=== PATIENT | female | born 1985 | race Caucasian/White ===

== ENCOUNTER 2016-11-10 19:24 | Emergency (ER) | payer MEDICAID, OTHER, SELFPAY ==
[~2016-11-10] VITALS: Ht 160 cm; Wt 57.5 kg
[2016-11-10] MEDS ORDERED: ADACEL/BOOSTRIX VACCINE (DIPHTH/PERTUSS/ACELL/TETANUS)0.5ML SYR (90715) IM ONE (20:15)
[2016-11-10] MEDS ORDERED: LIDOCAINE 2% MDV 20 ML VIAL SC ONE (20:15)
[2016-11-10 21:42] VITALS: BP 126/76
== END 2016-11-10 21:46 | disposition home or self-care (01) ==
LOC: M ED 19:24
DX: S61.011A Laceration without foreign body of right thumb without damage to nail, initial encounter (principal); W26.8XXA Contact with other sharp object(s), not elsewhere classified, initial encounter; Y92.099 Unspecified place in other non-institutional residence as the place of occurrence of the external cause; Y93.9 Activity, unspecified; Y99.9 Unspecified external cause status; F17.200 Nicotine dependence, unspecified, uncomplicated; J30.81 Allergic rhinitis due to animal (cat) (dog) hair and dander; Z91.040 Latex allergy status

== ENCOUNTER 2016-11-21 08:15 | Emergency (ER) | payer MEDICAID, SELFPAY ==
[~2016-11-21] VITALS: Ht 157.5 cm; Wt 58.0 kg
[2016-11-21 08:28] VITALS: BP 111/66
== END 2016-11-21 09:01 | disposition home or self-care (01) ==
LOC: M ED 08:15
DX: Z48.02 Encounter for removal of sutures (principal); J30.81 Allergic rhinitis due to animal (cat) (dog) hair and dander; J30.1 Allergic rhinitis due to pollen; Z91.040 Latex allergy status

== ENCOUNTER 2018-05-05 17:12 | Emergency (ER) | payer MEDICAID ==
[~2018-05-05] VITALS: Ht 157.5 cm; Wt 59.1 kg
[2018-05-05 17:13] VITALS: BP 142/75
--- NOTE | 2018-05-05 19:56 | REP ---
RIGHT ANKLE, FOUR VIEWS: HISTORY: Trauma. COMPARISON: 11/13/2015. There is no acute fracture or dislocation. The joint space is normal in appearance. IMPRESSION:There is no acute fracture or dislocation. Electronically Signed by Tre Gaytan MD 05/06/2018 08:24 A
--- NOTE | 2018-05-05 19:56 | REP ---
RIGHT FOOT, FOUR VIEWS: HISTORY: Trauma. There is no acute fracture or dislocation. The joint spaces are normal in appearance. IMPRESSION:There is no acute fracture or dislocation. Electronically Signed by Tre Gaytan MD 05/06/2018 08:26 A
== END 2018-05-05 19:56 | disposition home or self-care (01) ==
LOC: M ED 17:12
DX: S90.31XA Contusion of right foot, initial encounter (principal); W01.0XXA Fall on same level from slipping, tripping and stumbling without subsequent striking against object, initial encounter; Y92.009 Unspecified place in unspecified non-institutional (private) residence as the place of occurrence of the external cause

== ENCOUNTER 2018-10-06 08:36 | Emergency (ER) | payer OTHER ==
[~2018-10-06] VITALS: Ht 157.5 cm; Wt 57.1 kg
[2018-10-06 08:37] VITALS: BP 132/78
[2018-10-06] MEDS ORDERED: DOXY100C37 PO (10:06)
== END 2018-10-06 10:20 | disposition home or self-care (01) ==
LOC: M ED 08:36
DX: S30.861A Insect bite (nonvenomous) of abdominal wall, initial encounter (principal); W57.XXXA Bitten or stung by nonvenomous insect and other nonvenomous arthropods, initial encounter; Y92.89 Other specified places as the place of occurrence of the external cause; J30.81 Allergic rhinitis due to animal (cat) (dog) hair and dander; Z91.040 Latex allergy status; F17.210 Nicotine dependence, cigarettes, uncomplicated

== ENCOUNTER → 2018-11-16 | Outpatient (CLI) | payer OTHER ==
[~2018-11-16] MED LIST: DOXY100C37 PO
--- NOTE | 2018-11-17 07:52 | REP ---
Right ankle four views : There is no fracture or dislocation. Mineralization and joint spaces are normal. There are no calcifications or foreign bodies. Impression: Negative right ankle . Electronically Signed by Houston Jeffries MD 11/16/2018 09:13 A
--- NOTE | 2018-11-17 07:52 | REP ---
Right foot four views : There is no fracture or dislocation. Mineralization and joint spaces are normal. There are no calcifications or foreign bodies. Impression: Negative right foot . Electronically Signed by Houston Jeffries MD 11/16/2018 09:14 A
== END ==
LOC: M WUC 08:47
PROVIDERS: ATTEND Physician Assistant
DX: S93.401A Sprain of unspecified ligament of right ankle, initial encounter (principal); S93.601A Unspecified sprain of right foot, initial encounter

== ENCOUNTER → 2019-11-18 | Outpatient (REF) | payer OTHER | LOC: M LAB REF 15:31 | PROVIDERS: ATTEND Physician Assistant | DX: R19.7 Diarrhea, unspecified (principal) ==

== ENCOUNTER → 2019-11-25 | Emergency (ER) | payer OTHER ==
[~2019-11-25] MED LIST changes: +GASTROGRAFIN SOLUTION 30ML (Q9963) As Ordered ONE; +GASTROGRAFIN SOLUTION 30ML (Q9963) ONE; +ISOVUE-370 76% 100ML VIAL As Ordered ONE; +KETOROLAC 30 MG/ML 1ML VIAL As Ordered ONE; +KETOROLAC 30 MG/ML 1ML VIAL ONE; +ONDANSETRON 4MG/2ML VIAL As Ordered ONE; +ONDANSETRON 4MG/2ML VIAL ONE
[2020-01-10 11:01] LABS: APPEARANCE, URINE CLEAR (CLEAR); BACTERIA, URINE AUTO NEGATIVE (NEGATIVE); BILIRUBIN, URINE AUTO NEGATIVE (NEGATIVE); BLOOD, URINE BLOOD 2+ (NEGATIVE); COLOR, URINE YELLOW (YELLOW); GLUCOSE, URINE (UA) AUTO NEGATIVE (NEGATIVE); KETONE, URINE AUTO NEGATIVE (NEGATIVE); LEUKOCYTE ESTERASE, URINE AUTO NEGATIVE (NEGATIVE); MUCUS, URINE SMALL (NEGATIVE); NITRITE, URINE AUTO NEGATIVE (NEGATIVE); PROTEIN, URINE AUTO NEGATIVE (NEGATIVE); RBC, URINE AUTO 3 /HPF (0-3); SPECIFIC GRAVITY URINE AUTO 1.023 (1.002-1.035); SQUAMOUS EPITHELIAL CELL UR AU 1 /HPF (0-6); UROBILINOGEN, URINE AUTO 0.2 mg/dL (0.0-2.0); WBC, URINE AUTO 1 /HPF (0-3)
[2020-01-10 11:37] LABS: BASO # 0.1 10^3/uL (0.0-0.2); BASO % 0.6 % (0.0-1.0); EOS # 0.4 10^3/uL (0.0-0.5); EOS % 4.5 % (0.0-3.0); HEMATOCRIT 44.7 % (36.0-47.0); HEMOGLOBIN 14.6 g/dl (12.0-15.5); LYMPH # 1.6 10^3/uL (1.5-5.0); LYMPH % 18.9 % (24.0-44.0); MEAN CORPUSCULAR HEMOGLOBIN 31.7 pg (27.0-33.0); MEAN CORPUSCULAR HGB CONC 32.7 g/dl (32.0-36.5); MEAN CORPUSCULAR VOLUME 97.2 fl (80.0-96.0); MONO # 0.5 10^3/uL (0.0-0.8); MONO % 6.5 % (0.0-5.0); NEUTROPHILS # 5.7 10^3/uL (1.5-8.5); NEUTROPHILS % 69.3 % (36.0-66.0); PLATELET COUNT, AUTOMATED 334 10^3/uL (150-450); WHITE BLOOD COUNT 8.3 10^3/uL (4.0-10.0)
[2020-02-20 10:14] LABS: ALBUMIN 4.2 GM/DL (3.2-5.2); ALT/SGPT 18 U/L (12-78); BILIRUBIN,TOTAL 0.4 MG/DL (0.2-1.0); BLOOD UREA NITROGEN 14 MG/DL (7-18); CALCIUM LEVEL 9.3 MG/DL (8.5-10.1); CARBON DIOXIDE LEVEL 29 MEQ/L (21-32); CHLORIDE LEVEL 109 MEQ/L (98-107); CREATININE FOR GFR 0.67 MG/DL (0.55-1.30); GLOMERULAR FILTRATION RATE > 60.0 (>60); GLUCOSE, FASTING 83 MG/DL (70-100); LIPASE 49 U/L (73-393); POTASSIUM SERUM 4.3 MEQ/L (3.5-5.1); SODIUM LEVEL 140 MEQ/L (136-145); TOTAL PROTEIN 8.2 GM/DL (6.4-8.2)
== END | disposition home or self-care (01) ==
LOC: M ED 10:00
DX: K52.9 Noninfective gastroenteritis and colitis, unspecified (principal); N20.0 Calculus of kidney; F17.290 Nicotine dependence, other tobacco product, uncomplicated; Z88.8 Allergy status to other drugs, medicaments and biological substances; Z91.040 Latex allergy status
CPT/HCPCS: 71046; 74177; 80053; 81001; 83690; 85025; 96361; 96374; 96375; 99284; J1885; J2405; Q9963; Q9967

== ENCOUNTER 2020-04-13 12:23 | Emergency (ER) | payer OTHER ==
[~2020-04-13] VITALS: Ht 157.5 cm; Wt 51.5 kg
[~2020-04-13 12:23] MED LIST changes: -GASTROGRAFIN SOLUTION 30ML (Q9963) As Ordered ONE; -GASTROGRAFIN SOLUTION 30ML (Q9963) ONE; -ISOVUE-370 76% 100ML VIAL As Ordered ONE; -KETOROLAC 30 MG/ML 1ML VIAL As Ordered ONE; -KETOROLAC 30 MG/ML 1ML VIAL ONE; -ONDANSETRON 4MG/2ML VIAL As Ordered ONE; -ONDANSETRON 4MG/2ML VIAL ONE
[2020-04-13] MEDS ORDERED: NS 1,000 ML IV ONE (13:15)
[2020-04-13 13:44] LABS: BASO % 0.5 % (0.0-1.0); EOS % 0.5 % (0.0-3.0); HEMATOCRIT 40.1 % (36.0-47.0); HEMOGLOBIN 13.1 g/dl (12.0-15.5); LYMPH # 1.4 10^3/uL (1.5-5.0); LYMPH % 16.3 % (24.0-44.0); MEAN CORPUSCULAR HEMOGLOBIN 31.3 pg (27.0-33.0); MEAN CORPUSCULAR HGB CONC 32.7 g/dl (32.0-36.5); MEAN CORPUSCULAR VOLUME 95.7 fl (80.0-96.0); MONO # 0.5 10^3/uL (0.0-0.8); MONO % 5.6 % (0.0-5.0); NEUTROPHILS # 6.8 10^3/uL (1.5-8.5); NEUTROPHILS % 76.8 % (36.0-66.0); PLATELET COUNT, AUTOMATED 260 10^3/uL (150-450); RED BLOOD COUNT 4.19 10^6/uL (4.00-5.40); WHITE BLOOD COUNT 8.8 10^3/uL (4.0-10.0)
[2020-04-13 14:10] LABS: ALBUMIN 3.9 GM/DL (3.2-5.2); ALT/SGPT 14 U/L (12-78); BILIRUBIN,DIRECT 0.1 MG/DL (0.0-0.2); BILIRUBIN,TOTAL 0.2 MG/DL (0.2-1.0); LIPASE 53 U/L (73-393); TOTAL PROTEIN 7.3 GM/DL (6.4-8.2)
[2020-04-13 14:21] LABS: C REACTIVE PROTEIN QUANTITATIV < 0.30 MG/DL (0.00-0.30)
[2020-04-13 14:43] LABS: ERYTHROCYTE SEDIMENTATION RATE 3 mm/hr (0-20)
[2020-04-13] MEDS: GASTROGRAFIN SOLUTION 30ML PO SCH ×2 (14:47→15:14)
[2020-04-13] MEDS ORDERED: MORPHINE 2 MG/ML 1ML VIAL (J2270) IV ONE (15:00)
[2020-04-13] MEDS ORDERED: PANTOPRAZOLE 40MG VIAL (C9113 PER 1) IV ONE (15:00)
[2020-04-13] MEDS ORDERED: ISOVUE-370 76% 100ML VIAL As Ordered ONE (16:07)
--- NOTE | 2020-04-13 16:41 | REP ---
INDICATION: left abd pain COMPARISON: 11/25/2019. TECHNIQUE: CT Scan of the abdomen and pelvis was performed with intravenous administration of 100 cc of Isovue 370, and oral contrast. FINDINGS: Lung bases: Unremarkable. Liver: There appears to be a tiny subcentimeter cyst in the liver near the gallbladder. Gallbladder: Unremarkable. Spleen: Normal. Adrenals: Normal. Pancreas: Normal. Kidneys: Subcentimeter calculus is seen in the lower pole of the right kidney. There is no hydronephrosis. Small and large bowel: Unremarkable. Free fluid: Trace free fluid is seen in the pelvis. Abdominal aorta: No aneurysm or dissection. Adenopathy: There are subcentimeter lymph nodes in the periaortic region. There also 2 slightly enlarged left para-aortic lymph nodes below the left renal vessels measuring 1.2 and 1.3 cm in short axis.. Appendix: Not inflamed. Osseous structures: There are few tiny bone islands in the pelvic bones. Pelvis: There is an IUD in the endometrial canal. There is a cystic structure of the right ovary 3.8 cm in diameter. IMPRESSION: There is a cystic structure of the right ovary 3.8 cm in diameter. There is trace free fluid in the pelvis. Two slightly enlarged left para-aortic lymph nodes are nonspecific, measuring 1.2 and 1.3 cm in short axis dimension. Otherwise no acute abnormalities are seen. <Electronically signed by Houston Weaver > 04/13/20 [id number]
[2020-04-13] MEDS ORDERED: PROT1TAB2 PO (16:55)
[2020-04-13] MEDS ORDERED: CARA1TAB6 PO (16:55)
[2020-04-13 17:03] VITALS: BP 129/71
--- NOTE | 2020-04-15 14:08 | ED PDOC ---
Post-Departure Follow-Up radiology report faxed to [facility] esparza Sarah MD Apr 15, 2020 14:08
== END 2020-04-13 17:11 | disposition home or self-care (01) ==
LOC: M ED 12:23
DX: N83.201 Unspecified ovarian cyst, right side (principal); K29.00 Acute gastritis without bleeding; F17.200 Nicotine dependence, unspecified, uncomplicated; J30.81 Allergic rhinitis due to animal (cat) (dog) hair and dander; Z91.040 Latex allergy status
CPT/HCPCS: 74177; 80047; 80076; 83690; 84702; 85025; 85652; 86140; 96361; 96374; 96375; 99284; C9113; J2270; Q9963; Q9967

== ENCOUNTER → 2020-05-13 | Outpatient (CLI) | payer OTHER ==
[~2020-05-13] MED LIST changes: +CARA1TAB6 PO; +PROT1TAB2 PO
== END ==
LOC: M LABSMTC 09:49
PROVIDERS: ATTEND Anesthesiology
DX: Z01.812 Encounter for preprocedural laboratory examination (principal); Z20.822 Contact with and (suspected) exposure to COVID-19

== ENCOUNTER → 2020-05-27 | Outpatient (CLI) | payer OTHER | LOC: M LABSMTC 09:51 | PROVIDERS: ATTEND Anesthesiology | DX: Z01.812 Encounter for preprocedural laboratory examination (principal); Z20.822 Contact with and (suspected) exposure to COVID-19 ==

== ENCOUNTER 2020-06-01 09:58 | Day surgery (SDC) | payer OTHER ==
[~2020-06-01] VITALS: Ht 157.5 cm; Wt 48.1 kg
[~2020-06-01 09:58] MED LIST changes: +NS 1,000 ML IV ONE
--- OUTSIDE RECORDS SUMMARY | 2020-06-01 10:01 | CCD | Continuity of Care Document ---
Author Author RUTHY COX, Mariah Horvath Organization Unknown Address [address] [place] [id number] Phone [phone] Care Team Providers Care Machine Stamper Name Role Phone Graciela Brock M.D. AUTM [phone] You Ramos AUTM [phone] Problems Description No Information Available Social History Type Date Description Comments Sex Unknown ETOH Use Denies alcohol use Recreational Drug Use Denies Drug Use Tobacco Use Start: Unknown Patient is a current smoker, smo kes every day 1 PPD FOR 17 YEARS Allergies, Adverse Reactions, Alerts Active Allergies Reaction Severity Comments Date Latex Hives 05/03/2020 Seasonal ITCHY EYES, RUNNY NOSE 05/03 Medications Active Medications SIG Qnty Indications Ordering Provide r Date Sucralfate 1gm Tablets take 1 tablet by mouth four daily.(may dissolve in warm water if you have trouble swallowing) Unknown Pantoprazole Sodium 40mg Tablets D R one daily Unknown Immunizations Description No Information Available Vital Signs Date Vital Result Comment 05/03/2020 10:26am BP Systolic 122 mmHg BP Diastolic 77 mmHg Height 62 inches 5'2" Weight 109.25 lb BMI (Body Mass Index) 20.0 kg/m2 [place] Body Weight 110 lb Weight 49.556 kg BSA (Body Surface Area) 1.48 m2 Results Description No Information Available Procedures Description No Information Available Medical Devices Description No Information Available Encounters Description No Information Available Assessments Description No Information Available Plan of Treatment No Information Available Functional Status Description No Information Available Mental Status Description No Information Available Referrals Refer to Reason for Referral Status Appt Date Cong Osborne MD GASTRITIS Scheduled 05/03/[address] [address] [phone]
--- OUTSIDE RECORDS SUMMARY | 2020-06-01 10:01 | CCD ---
Author Author [facility] Organization [facility] Address Unknown Phone Unavailable Care Team Providers Care [place] Technician Name Role Phone GRIJALVA, DILMA YOU RPA-C Unavailable Unavailable GRIJALVA, DILMA YOU RPA-C Unavailable Unavailable GRIJALVA, DILMA YOU RPA-C Unavailable Unavailable GRIJALVA, DILMA YOU RPA-C Unavailable Unavailable GRIJALVA, DILMA YOU RPA-C Unavailable Unavailable GRIJALVA, DILMA YOU RPA-C Unavailable Unavailable GRIJALVA, DILMA YOU RPA-C Unavailable Unavailable GRIJALVA, DILMA YOU RPA-C Unavailable Unavailable GRIJALVA, DILMA YOU RPA-C Unavailable Unavailable GRIJALVA, DILMA YOU RPA-C Unavailable Unavailable GRIJALVA, DILMA YOU RPA-C Unavailable Unavailable GRIJALVA, DILMA YOU RPA-C Unavailable Unavailable GRIJALVA, DILMA YOU RPA-C Unavailable Unavailable GRIJALVA, DILMA YOU RPA-C Unavailable Unavailable GRIJALVA, DILMA YOU RPA-C Unavailable Unavailable GRIJALVA, DILMA YOU RPA-C Unavailable Unavailable GRIJALVA, DILMA YOU RPA-C Unavailable Unavailable GRIJALVA, DILMA YOU RPA-C Unavailable Unavailable GRIJALVA, DILMA YOU RPA-C Unavailable Unavailable GRIJALVA, DILMA YOU RPA-C Unavailable Unavailable GRIJALVA, DILMA YOU RPA-C Unavailable Unavailable GRIJALVA, DILMA YOU RPA-C Unavailable Unavailable GRIJALVA, DILMA YOU RPA-C Unavailable Unavailable GRIJALVA, DILMA YOU RPA-C Unavailable Unavailable GRIJALVA, DILMA YOU RPA-C Unavailable Unavailable GRIJALVA, DILMA YOU RPA-C Unavailable Unavailable GRIJALVA, DILMA YOU RPA-C Unavailable Unavailable GRIJALVA, DILMA YOU RPA-C Unavailable Unavailable GRIJALVA, DILMA YOU RPA-C Unavailable Unavailable GRIJALVA, DILMA YOU RPA-C Unavailable Unavailable GRIJALVA, DILMA YOU RPA-C Unavailable Unavailable GRIJALVA, DILMA YOU RPA-C Unavailable Unavailable GRIJALVA, DILMA YOU RPA-C Unavailable Unavailable GRIJALVA, DILMA YOU RPA-C Unavailable Unavailable GRIJALVA, DILMA YOU RPA-C Unavailable Unavailable GRIJALVA, DILMA YOU RPA-C Unavailable Unavailable GRIJALVA, DILMA YOU RPA-C Unavailable Unavailable GRIJALVA, DILMA YOU RPA-C Unavailable Unavailable GRIJALVA, DILMA YOU RPA-C Unavailable Unavailable [facility] YOU Unavailable Unavailable Re-disclosure Warning The records that you are about to access may contain information from federally-assisted alcohol or drug abuse programs. If such information is present, then the following federally mandated warning applies: This information has been disclosed to you from records protected by federal confidentiality rules (42 CFR part 2). The federal rules prohibit you from making any further disclosure of this information unless further disclosure is expressly permitted by the written consent of the person to whom it pertains or as otherwise permitted by 42 CFR part 2. A general authorization for the release of medical or other information is NOT sufficient for this purpose. The Federal rules restrict any use of the information to criminally investigate or prosecute any alcohol or drug abuse patient.The records that you are about to access may contain highly sensitive health information, the redisclosure of which is protected by Article 27-F of the [facility] Public Health law. If you continue you may have access to information: Regarding HIV / AIDS; Provided by facilities licensed or operated by the [facility] Office of Mental Health; or Provided by the [facility] Office for People With Developmental Disabilities. If such information is present, then the following [facility] mandated warning applies: This information has been disclosed to you from confidential records which are protected by state law. State law prohibits you from making any further disclosure of this information without the specific written consent of the person to whom it pertains, or as otherwise permitted by law. Any unauthorized further disclosure in violation of state law may result in a fine or usp sentence or both. A general authorization for the release of medical or other information is NOT sufficient authorization for further disc losure. Allergies and Adverse Reactions Type Description Substance Reaction Status Data Source(s ) Miscellaneous allergy LATEX LATEX break out [facility] Family History Family Member Name Family Member Gender Family Member Status Date o f Status Description Data Source(s) Unknown Unknown Problem [facility] ([facility] Encounters Encounter Providers Location Date Indications Data Source(s ) Outpatient Attender: [facility] 01/29/2020 11:48:03 AM EDT [facility] Outpatient Attender: [facility] 01/28/2020 11:38:04 AM EDT [facility] Outpatient Attender: GARETH BLACK ALL 11/21 02:23:02 PM EDT [facility] Outpatient Attender: [facility] 12/11/2019 12:00:10 AM EDT [facility] Outpatient Attender: YOU [facility] 12/10/2019 12:24:01 PM EDT [facility] Medications Medication Brand Name Start Date Product Form Dose Route Admi nistrative Instructions Pharmacy Instructions Status Indications Reaction Description Data Source(s) 1 gram 04/13/2020 12:00:00 AM EST tablet 100 TAKE ONE TABLET BY MOUTH FOUR TIMES A DAY BEFORE MEALS AND AT BEDTIME ON EMPTY STOMACH TAKE ONE TABLET BY MOUTH FOUR TIMES A DAY BEFORE MEALS AND AT BEDTIME ON EMPTY STOMACH SOLD: 04/14/2020 [facility] pantoprazole 40 MG Delayed Release Oral Tablet PANTOPRAZOLE SODIUM 04/13/2020 12:00:00 AM EST tablet,delayed release (DR/EC) 30 T DAE ONE TABLET BY MOUTH EVERY DAY TAKE ONE TABLET BY MOUTH EVERY DAY SOLD: 04/14/2020 [facility] Insurance Providers Payer name Policy type / Coverage type Policy ID Covered green party ID Covered green party's relationship to welsh Policy Welsh Plan Information [facility] [id number] SP [id number] [facility] O [id number] S [id number] [facility] Health Maintenance Organization (HMO) [id number] Self [id number] MEDICAID M [id number] [facility] Community Plan Commercial [id number] Self [id number] MEDICAID [id number] SP [id number] MEDICAID [id number] SP [id number] SELF PAY ONLY [id number] SP [id number] [facility] COMMUN[facility] [id number] SP [id number] [facility] O [id number] S [id number] Problems, Conditions, and Diagnoses Code Display Name Description Problem Type Effective Dates Data Source(s) 530.81 Gastro-esophageal reflux disease without esophagitis Gastro-esophageal reflux disease without esophagitis 01/29/2020 11:46:02 AM ED T [facility] V05.9 Encounter for immunization Encounter for immunization 01/28/2020 11:36:10 AM EDT [facility] Z00.00 Encounter for general adult medical examination without abnormal findings Encounter for general adult medical examination without abno rmal findings 01/28/2020 11:36:10 AM EDT [facility] V85.1 BMI 22.0-22.9 BMI 22.0-22.9 01/28/2020 11:36:10 AM EDT [facility] [id number] Noninfective gastroenteritis and colitis , unspecified Noninfective gastroenteritis and colitis, unspecified 12/10/2019 12:23:06 PM EDT [facility] F17.210 Nicotine dependence, cigarettes, uncompl icated Nicotine dependence, cigarettes, uncomplicated 12/10/2019 12:23:06 PM EDT [facility] 787.3 Bloating symptom Bloating symptom 12/10/2019 12 :23:06 PM EDT [facility] 789.02 Left upper quadrant pain Left upper quadrant pain 12/10/2019 12:23:06 PM EDT [facility] 305.1 Tobacco user Tobacco user 12/10/2019 12:23:06 P M EDT [facility] Results ID Date Data Source [id number] 05/27/2020 09:30:00 AM EST [facility] Name Value Range Interpretation Code Description Data Analia rce(s) Supporting Document(s) SARS coronavirus 2 RNA Not Detected [facility] This lab was ordered by [facility] and reported by [facility]. ID Date Data Source [id number] 05/13/2020 10:00:00 AM EST [facility] Name Value Range Interpretation Code Description Data Analia rce(s) Supporting Document(s) SARS coronavirus 2 RNA Not Detected [facility] This lab was ordered by [facility] and reported by [facility]. ID Date Data Source [id number] 01/28/2020 11:08:16 AM EDT [facility] Measurements & CalculationsHeight: 62 inches (5 ft. 2 in.) 157.48 cm Weight: 120.4 pounds 54.73 kg Body Mass Index (BMI): 22.10BMI Interpretation: Healthy WeightBody Surface Area (BSA): 1.54Weight Management Education Done (Nutrition/Physical Activity)Vital SignsTemperature: 98.7F 37.06C tympanic Pulse Rate: 74 beats/minuteRespiratory Rate: 18 respirations/minuteBlood Pressure: 113/77 left arm sitting automaticO2 Saturation: 99% Vital Signs performed by: Elizabeth Faye LPN, January 28, 2020 11:12 AMAdult Questionnaire1) Does the patient have a long-term health problem with heart disease, lung disease, asthma, kidney disease, metabolic disease (e.g., diabetes), anemia, or other blood disorder? No2) Does the patient have allergies to medications, food, a vaccine component, or latex? No3) Does the patient have cancer, leukemia, AIDS, or any other immune system problem? No4) Does the patient live with or expect to have close contact with a person whose immune system is severely compromised and who must be in protective isolation (e.g., an isolation room of a bone marrow transplant unit)? No5) Does the patient take cortisone, prednisone, other steroids, or anticancer drugs, or has the patient had radiation treatments? No6) During the past year, has the patient received a transfusion of blood or blood products, or been given immune (gamma) globulin or an antiviral drug? No7) For women: Is the patient or is there a chance she could become during the next month? No8) Has the patient ever had a serious reaction to a vaccine in the past? No9) Has the patient had a seizure or a brain or other nervous system problem? No10) Has the patient received any vaccinations in the past 4 weeks? No11) Is the patient older than age 49 years? No12) Is the patient sick today? No13) Vaccine information given and explained to patient? YesVaccines Administ ered/Entered:Vaccination Group: InfluenzaSeries: 1Vaccination: Flulaval Quadrivalent Intramuscular Suspension Prefilled Syringe 0.5 MLMfr / Lot# / Exp.Date: Tour Desk / [id number] 1Amt. Given / Route / Site: 0.5 mL / IM / Left DeltoidNDC / CVX: [id number] / 150Administered Date: 01/28/2020 11:46VFC Eligibility: Not VFC EligibleVIS Date: 12/04/2018VIS Given / VIS Given On: Yes / 01/28/2020Comments: Administered by: Elizabeth Faye LPN Initial Intake Information From: patientRoom #: 1Infectious Disease / Travel ScreeningRecent travel for you or any close contacts? NoHave you had any close contact with anyone diagnosed with or under investigation for COVID-19 (coronavirus)? NoFever? NoRespiratory symptoms: cough, cold, congestion, shortness of breath, difficulty breathing? NoLoss of smell? NoLoss of taste? NoSmoking, Tobacco, Vaping or Smoke Exposure StatusSmoke Status: current every day smokerTobacco Use: YesAdv to Quit: YesPassive Smoke Exposure: YesMenstrual HistoryLast Menstrual Period (LMP): 01/19/2020LMP History: ApproximateAny possibility of ? NoHealthcare HistorySince your last office visit...Have you been admitted to the hospital? NoHave you been to an emergency room (ER) or urgent care clinic? NoEmergency room (ER) or urgent care date reported today: 11/25/2019Have you seen another healthcare provider? NoHave you seen a dentist? NoIntake performed by: Elizabeth Faye LPN, January 28, 2020 11:10 AMRate Your HealthIn general, would you say your health is? PoorPain AssessmentAre you currently having any pain which... You would like your provider to address? Yes Affects your activity level? YesDepression Screening - PHQ-2Over the last two weeks, have you... Had little interest or pleasure in doing things? Several days Been feeling down, depressed, or hopeless? Several days PHQ-2 Score: 2Anxiety Screening - WANDA-2Over the last two weeks, have you been... Feeling nervous, anxious, or on edge? More than half the days Unable to stop or control worrying? More than half the days WANDA-2 Score: 4Food InsecurityWithin the past year...Did you worry whether your food would run out before you got money to buy more? Never trueWas there a time when the food you bought didn't last and you didn't have money to get more? Never trueGeneralized Anxiety Disorder 7-Item Screening (WANDA-7)Answer Guide:0 = Not at all1 = Several days2 = Over half the days3 = Nearly every dayOver the last 2 weeks, how often have you been bothered by the following problems?Feeling nervous, anxious, or on edge: 2Not being able to stop or control worryinWorrying too much about different things: 2Trouble relaxinBeing so restless that it's hard to sit still: 2Becoming easily annoyed or irritable: 2Feeling afraid as if something awful might happen: 2Answer Guide:0 = Not difficult at all1 = Somewhat difficult2 = Very difficult3 = Extremely difficultHow difficult have these made it for you to do your work, take care of things at home, or get along with other people? 2GAD-7 Screening Results WANDA-2 Score: 4GAD-7 Score: 14Functional Impairment: Very difficultRecommendation: Moderate anxietyPHQ-9 1. Over the last 2 weeks, patient reports the following frequency of symptoms: a. Little interest or pleasure in doing things - Several days b. Feeling down, depressed, or hopeless -Several days c. Trouble falling asleep, staying asleep, or sleeping too much -Several days d. Feeling tired or having little energy -Several days e. Poor appetite or overeating -Several days f. Feeling bad about yourself, feeling that you are a failure, or feeling that you have let yourself or your family down -Several days g. Trouble concentrating on things such as reading the newspaper or watching television -Several days h. Moving or speaking so slowly that other people could have noticed. Or being so fidgety or restless that you have been moving around a lot more than usual -Several days i. Thinking that you would be better off or that you want to hurt yourself in some way -Not at all2. If you checked off any problems, how difficult have these problems made it for you to do your work, take care of things at home, or get along with other people? -Somewhat DifficultToday's PHQ-9 Results Score: 8 Severity: Mild Diagnosis Recommendation: No recommendation Functional Impairment: Somewhat DifficultToday's Follow-Up Action Depression follow-up done. Follow-Up Action: Showing Improvement, No Changes NecessaryPain AssessmentLocation: left side abdomenPRAPARE Sociodemographic Characteristics Race: White Ethnicity: Not or Preferred Language: EnglishFamily and Home Address: [address] [place] [address] What is your housing situation today? I have housing Are you worried about losing your housing? NoMoney and Resources Employed? Yes Your current work situation? PT Insurance: Managed Care - [facility] Community PlanIn the past year, have you or any family members you live with been unable to get any of the following when it was really needed? Denies Insecurity: food, utilities, clothing, child care coordinator, phone, legal services, otherWithin the past year did you worry whether your food would run out before you got money to buy more? Never trueWithin the past year was there a time when the food you bought didn't last and you didn't have money to get more? Never trueIn the past year, have you had trouble affording costs associated with health insurance (such as deductibles, co-payments, etc.)? NoScreening, Brief Intervention, & Referral to Treatment (SBIRT)Pre-Screening Questions How many times have you have 4 or more drinks in a day? 0How many times have you used an illegal drug or used a prescription medication for a non-medical reason? 0Performed by: Elizabeth Faye LPN, January 28, 2020 11:12 AMPatient History Medical History:Surgical History:No known surgical historyFamily History:No family hx of GI disordersGrandmother-Hep C from blood transfusionSocial/Personal History: Advised to Quit/Tobacco Educat ion: YesChief Complaintannual examHistory of Present Illness (HPI)Pt is a 34 y/o female, presents for annual PE.Pt feels more bloating and flatulance. Less appetite since last visit. Carafate/Sucrafate has been repetitively denied by her insurance. Will be seeing [facility] next month for IUD check and will update pap there. Pt agrees to flu vaccine today. HPI performed by: You JOYA, January 28, 2020 11:28 AMTransitions of Care InboundProblem ReviewProblem List was reviewed and/or updated during this visit.Medication Reconciliation & ReviewMedication List was reviewed and/or updated during this visit, including review of any kzpk-qfn-lodljen medications, herbal therapies, and/or supplements.Allergy ReviewAllergy List was reviewed and/or updated during this visit.Adult Preventive CareScreening Tobacco Screening: Smoking Status: current every day smoker (01/28/2020) Tobacco Use: Currently (01/28/2020) Advised to Quit: Yes (01/28/2020)Labs/Meds/Other Counseling-Nutrition and Physical Activity:BMI Interpretation: Healthy Weight (01/28/2020) Counseling: Done (01/28/2020) Physical Activity: Done (01/28/2020)Review of Systems General: Denies chills, dizziness, fatigue, fever, headache. Eyes: Denies blurring of vision, double vision. Ears/Nose/Throat: Denies earache, decreased hearing, nasal congestion, sore throat, difficulty swallowing. Cardiovascular: Denies chest pain, palpitations, feeling faint, peripheral edema. Respiratory: Denies cough, difficulty breathing, shortness of breath, wheezing. Gastrointestinal: Complains of see HPI, cramps, pain or discomfort. Denies vomi ting, diarrhea, constipation. Genitourinary: Denies pain with urination, burning with urination, urinary frequency, blood in urine. Musculoskeletal: Denies joint pain. Skin: Denies rash. Neurologic: Denies weakness, numbness/tingling, feeling faint. Physical ExamGeneral Appearance: well nourished, well hydrated, no acute distressEyes, External: conjunctivae and lids normal, EOMIExternal Ears: normal, no lesions or deformitiesHearing: grossly intactOtoscopy: canals clear, tympanic membranes intact, no fluid, light reflex intact bilaterallyExternal Nose: normal, no lesions or deformitiesNasal: mucosa, septum, and turbinates normal, nares patentLips/Teeth/Gums: normal dentition, no gingival inflammation, no labial lesionsPharynx: tongue normal, posterior pharynx without erythema or exudate, no thrush/aphthous ulcerNeck: supple, no masses, trachea midline, full range of motion of neckThyroid: no nodules, masses, tenderness, or enlargementRespiratory, Auscultation: clear to auscultation bilaterally; no rales, rhonchi, or wheezesCardiovascular, Auscultation: S1, S2 audible; no murmur, rub, or gallop; RRRPeripheral Circulation: no clubbing, cyanosis, edema, or varicositiesAbdomen: soft, LLQ mildly tender without rebound or guarding, no rigidity, no masses, bowel sounds normalGait & Station: normalSkin, Inspection: no rashes, lesions, or ulcerationsOrientation: oriented to time, place, and personMood & Affect: no depression, anxiety, or agitationJudgment & Insight: intactCare Management Plan Transitions of CareInboundRate Your HealthIn general, would you say your health is? PoorAssessment & Plan Problems:Added: Encounter for general adult medical examination without abnormal findings (ZAS11-O14.00) Assessment: Instructions: Recommend annual medical appointments. Recommend routine dental and vision care. Recommend influenza vaccines annually and tetanus boosters every 10 years. Flu vaccine today.Maintain routine pap testing with your [facility], send us a copy of your pap when they are done.Encounter for immunization (ICD- V05.9) (IBH21-C49) Assessment: Instructions: Flu vaccine today.BMI 22.0- 22.9 (ICD-V85.1) (JBE01-Y39.22) Assessment: Instructions: Healthy weight for height.Assessed:Nicotine dependence, cigarettes, uncomplicated (ICD10- F17.210) Assessment: Instructions: Smoking cessation counseling was recommended with patient today.Tobacco user (ICD-305.1) (QYK33-G48.200) Assessment: Instructions: As above.Noninfective gastroenteritis and colitis, unspecified (JNU15-H50.9) Assessment: Instructions: Will try again for alternate version of Carafate/Sucrafate. Will also start 8 week course of omeprazole daily as prescribed. Low acid diet, bland foods. If symptoms return after medication is complete, or don't improve with medications, please make a follow-up appointment. Pending GI referral.Bloating symptom (ICD-787.3) (ICD10- R14.0) Assessment: Instructions: As above.Left upper quadrant pain (ICD- 789.02) (BRD53-A43.12) Assessment: Instructions: As above.Patient Instructions/Care Plan: Encounter for general adult medical examination without abnormal findings: Recommend annual medical appointments. Recommend routine dental and vision care. Recommend influenza vaccines annually and tetanus boosters every 10 years. Flu vaccine today.Maintain routine pap testing with your [facility], send us a copy of your pap when they are done.Encounter for immunization: Flu vaccine today.Nicotine dependence- cigarettes- uncomplicated: Smoking cessation counseling was recommended with patient today.Tobacco user: As above.Noninfective gastroenteritis and colitis- unspecified: Will try again for alternate version of Carafate/Sucrafate. Will also start 8 week course of omeprazole daily as prescribed. Low acid diet, bland foods. If symptoms return after medication is complete, or don't improve with medications, please make a follow-up appointment. Pending GI referral.Bloating symptom: As above.Left upper quadrant pain: As above.BMI 22.0-22.9: Healthy weight for height. Plan developed in collaboration with patient and/or familyMedications:OMEPRAZOLE 20 MG ORAL TABLET DELAYED RELEASESUCRALFATE 1 GM ORAL TABLETMedication Changes:New Prescription:SUCRALFATE 1 GM ORAL TABLET-take 1 tablet po prior to meals and bedtime; MDD 4 Qty: 120[Tablet] Refills: 1 Method: ElectronicOMEPRAZOLE 20 MG ORAL TABLET DELAYED RELEASE-Take 1 tablet po QAM Qty: 30[Tablet] Refills: 1 Method: ElectronicRemoved:CARAFATE 1 GM ORAL TABLET-Take 1 tablet po up to 3 times daily prior to meals Qty: 90[Tablet] Refills: 1Allergies:* LATEX (Moderate)Orders:FluLaval Quadrivalent, preservative free [CPT-66018] Preventive, Est, (18-39) [CPT-16627] Follow-Up Return to clinic: in 1 year for preventive care visitAdditional Follow-Up: annual PEClinical Visit Summary Completed Name Value Range Interpretation Code Description Data Analia rce(s) Supporting Document(s) ID Date Data Source [id number] 12/10/2019 11:54:54 AM EDT [facility] Measurements & CalculationsHeight: 62 inches (5 ft. 2 in.) 157.48 cm Weight: 130.4 pounds 59.27 kg Body Mass Index (BMI): 23.94BMI Interpretation: Healthy WeightBody Surface Area (BSA): 1.60Weight Management Education Done (Nutrition/Physical Activity)Vital SignsTemperature: 98.4F 36.89C tympanic Pulse Rate: 86 beats/minuteRespiratory Rate: 18 respirations/minuteBlood Pressure: 110/73 right arm sitting automaticO2 Saturation: 98% Vital Signs performed by: Elizabeth Faye LPN, December 10, 2019 11:55 AMInitial Intake Information From: patientRoom #: 2Infectious Disease / Travel ScreeningRecent travel for you or any close contacts? NoHave you had any close contact with anyone diagnosed with or under investigation for COVID-19 (coronavirus)? NoFever? NoRespiratory symptoms: cough, cold, congestion, shortness of breath, difficulty breathing? NoLoss of smell? NoLoss of taste? NoSmoking, Tobacco, Vaping or Smoke Exposure StatusSmoke Status: current every day smokerTobacco Use: YesAdv to Quit: YesDo you vape? NoPassive Smoke Exposure: YesMenstrual HistoryLast Menstrual Period (LMP): 11/24/2019Any possibility of ? NoHealthcare HistorySince your last office visit...Have you been admitted to the hospital? NoHave you been to an emergency room (ER) or urgent care clinic? YesEmergency room (ER) or urgent care date reported today: 11/25/2019Have you seen another healthcare provider? NoHave you seen a dentist? NoIntake performed by: Elizabeth Faye LPN, December 10, 2019 11:56 AMRate Your HealthIn general, would you say your health is? PoorPain AssessmentAre you currently having any pain which... You would like your provider to address? Yes Affects your activity level? YesDepression Screening - PHQ-2Over the last two weeks, have you... Had little interest or pleasure in doing things? More than half the days Been feeling down, depressed, or hopeless? More than half the days PHQ-2 Score: 4Anxiety Screening - WANDA-2Over the last two weeks, have you been... Feeling nervous, anxious, or on edge? Not at all Unable to stop or control worrying? Not at all WANDA-2 Score: 0Food InsecurityWithin the past year...Did you worry whether your food would run out before you got money to buy more? NoWas there a time when the food you bought didn't last and you did n't have money to get more? NoPHQ-9 1. Over the last 2 weeks, patient reports the following frequency of symptoms: a. Little interest or pleasure in doing things -More than half the days b. Feeling down, depressed, or hopeless -More than half the days c. Trouble falling asleep, staying asleep, or sleeping too much - More than half the days d. Feeling tired or having little energy -More than half the days e. Poor appetite or overeating -More than half the days f. Feeling bad about yourself, feeling that you are a failure, or feeling that you have let yourself or your family down -More than half the days g. Trouble concentrating on things such as reading the newspaper or watching television - More than half the days h. Moving or speaking so slowly that other people could have noticed. Or being so fidgety or restless that you have been moving around a lot more than usual -More than half the days i. Thinking that you would be better off or that you want to hurt yourself in some way -Not at all2. If you checked off any problems, how difficult have these problems made it for you to do your work, take care of things at home, or get along with other people? -Very DifficultToday's PHQ-9 Results Score: 16 Severity: Moderately Severe Diagnosis Recommendation: Major Depression Functional Impairment: Very DifficultToday's Follow-Up Action Depression follow-up done. Follow-Up Action: Patient RefusedPain AssessmentLocation: abdomenOnset: 10/24/2019Duration: 1 monthFrequency: DailyCharacter/Quality: achingScreening, Brief Intervention, & Referral to Treatment (SBIRT)Pre-Screening Questions How many times have you have 4 or more drinks in a day? 0How many times have you used an illegal drug or used a prescription medication for a non-medical reason? 0Performed by: Elizabeth Faye LPN, December 10, 2019 11:59 AMPatient History Medical History:Surgical History:No known surgical historyFamily History:No family hx of GI disordersGrandmother-Hep C from blood transfusionSocial/Personal History: # Cigarettes/Day: 4Advised to Quit/Tobacco Education: YesAlcohol Use: PreviouslyYear Quit: 2019Drug Use: NeverChief Complaintfollow-up visitHistory of Present Illness (HPI)34 yo female presents for [facility] ER discharge as a new patient. No PCP in years as an adult. Pt states symptoms started around October 24, 2019. On October 31 had a pure bloody BM. No bloody BMs since then. Reports just very irregular BMs. Had ongoing abdominal pain and presents to [facility] ER on 11/25/2019. Was diagnosed with jejunitis and advised gluten avoidance and GI follow-up. Pt is distressed daily about having to avoid all gluten. Pt reports ongoing dizziness and fatigue. States blood work in the hospital was normal. Pt reports symptoms have not improved since stopping gluten 11/25/2019. Pt has anywhere from 3-8 BMs daily, varies depending on what she eats or drinks. This morning, she had dragon fruit and shortly had a BM that was the dragon fruit again. Denies heartburn. Admits bloating of LUQ/LLQ. Pt states belching constantly. HPI performed by: You JOYA, December 10, 2019 12:09 PMTransitions of Care InboundProblem ReviewProblem List was reviewed and/or updated during this visit.Medication Reconciliation & ReviewMedication List was reviewed and/or updated during this visit, including review of any ardz-ykv-ayydlwk medications, herbal therapies, and/or supplements. Patient has no known medications.Allergy ReviewAllergy List was reviewed and/or updated during this visit.Adult Preventive CareScreening Tobacco Screening: Smoking Status: current every day smoker (12/10/2019) Tobacco Use: Currently (12/10/2019) Advised to Quit: Yes (12/10/2019)Labs/Meds/Other Counseling- Nutrition and Physical Activity:BMI Interpretation: Healthy Weight (12/10/2019) Counseling: Done (12/10/2019) Physical Activity: Done (12/10/2019)Review of Systems General: Complains of dizziness, fatigue. Denies chills, fever, headache. Cardiovascular: Denies chest pain, palpitations, feeling faint. Re spiratory: Denies cough, difficulty breathing, shortness of breath. Gastrointestinal: Complains of see HPI, nausea, cramps, pain or discomfort, blood in stool. Denies diarrhea, heartburn. Genitourinary: Denies pain with urination, burning with urination, urinary frequency, urinary hesitancy. Skin: Denies rash, redness, itching, suspicious lesions. Neurologic: Denies weakness, feeling faint. Physical ExamGeneral Appearance: well nourished, well hydrated, no acute distressEyes, External: conjunctivae and lids normal, EOMIRespiratory, Auscultation: clear to auscultation bilaterally; no rales, rhonchi, or wheezesCardiovascular, Auscultation: S1, S2 audible; no murmur, rub, or gallop; RRRPeripheral Circulation: no clubbing, cyanosis, edema, or varicositiesAbdomen: soft, LLQ mildly tender without rebound or guarding, no rigidity, no masses, bowel sounds normalGait & Station: normalSkin, Inspection: no rashes, lesions, or ulcerationsOrientation: oriented to time, place, and personJudgment & Insight: intactCare Management Plan Transitions of CareInboundRate Your HealthIn general, would you say your health is? PoorAssessment & Plan Problems:Added: Noninfective gastroenteritis and colitis, unspecified (WYM58-Z88.9)Left upper quadrant pain (ICD-789.02) (SZI50-B74.12) Assessment: Instructions: Low FODMAP diet. [place] foods. Plenty of electrolyte fluid hydration. Release of information form(s) to obtain medical records from your prior providers(s) ([facility] ER) has been signed in the office today.Bloating symptom (ICD-787.3) (ICD10- R14.0) Assessment: Instructions: Carafate prior to meals. As above. Referral to GI. ER for severe sudden worsening symptoms.Nicotine dependence, cigarettes, uncomplicated (EBQ74-R92.210) Assessment: Instructions: Smoking cessation counseling was recommended with patient today.Tobacco user (ICD-305.1) (NOY67-D63.200) Assessment: Instructions: As above.Patient Instructions/Care Plan: Left upper quadrant pain: Low FODMAP diet. [place] foods. Plenty of electrolyte fluid hydration. Release of information form(s) to obtain medical records from your prior providers(s) ([facility] ER) has been signed in the office today.Bloating symptom: Carafate prior to meals. As above. Referral to GI. ER for severe sudden worsening symptoms.Nicotine dependence- cigarettes- uncomplicated: Smoking cessation counseling was recommended with patient today.Tobacco user: As above. Plan developed in collaboration with patient and/or familyMedication Changes:New Prescription:CARAFATE 1 GM/10ML ORAL SUSPENSION-10mL orally up to 3 times daily prior to meals Qty: 300[Milliliter] Refills: 5 Method: ElectronicAllergies:* LATEX (Moderate)Orders:Gastroenterology Consult [CPT-95063] Adult - Ofc Vst, NEW, Level IV [CPT-14661] Follow-Up Return to clinic: in 7 weeks for preventive care visitAdditional Follow-Up: annual PE, referral follow-upClinical Visit Summary Completed Name Value Range Interpretation Code Description Data Analia murciae(s) Supporting Document(s) ID Date Data Source [id number] 11/25/2019 03:05:00 PM EDT [facility] Name Value Range Interpretation Code Description Data Analia rce(s) Supporting Document(s) Ova + Parasite Exam Final report [facility] These results were obtained using wet pr eparation(s) and trichromestained smear. This test does not include testing for Cryptosporidiumparvum, Cyclospora, or Microsporidia. ID Date Data Source [id number] 11/25/2019 03:05:00 PM EDT [facility] Name Value Range Interpretation Code Description Data Analia rce(s) Supporting Document(s) Result 1 [facility] No ova, cysts, or parasites seen. One ne gative specimen does not rule out the possibility of aparasitic infection. Procedure Vital Signs ID Date Data Source UNK Name Value Range Interpretation Code Description Data Source(s) Body surface area Derived from formula 1.48 m2 1.48 m2 [facility] ([facility]) Body weight 49.556 kg 49.556 kg [facility] ([facility]) Melvin body weight 110 [lb_av] 110 [lb_av] [facility] ([facility]) Body mass index (BMI) [Ratio] 20.0 kg/m2 20.0 k g/m2 [facility] ([facility]) Body weight 109.25 [lb_av] 109.25 [lb_av] [facility] ([facility]) Body height 62 [in_i] 62 [in_i] [facility] ([facility]) 5'2" Diastolic blood pressure 77 mm[Hg] 77 mm[Hg] [facility] ([facility]) Systolic blood pressure 122 mm[Hg] 122 mm[Hg] [facility] ([facility])
[2020-06-01] MEDS ORDERED: propofoL 200 MG/20 ML VIAL As Ordered ONE (10:17)
[2020-06-01] MEDS ORDERED: fentaNYL 100 MCG/2 ML INJECTION (J3010) As Ordered ONE (10:17)
[2020-06-01] MEDS ORDERED: LIDOCAINE 2% 100MG/5ML SDV (FOR ANES.) As Ordered ONE (10:17)
[2020-06-01] MEDS ORDERED: ePHEDrine SULFATE 25 MG/5 ML(5MG/ML) SYRINGE As Ordered ONE (12:39)
--- NOTE | 2020-06-01 13:06 | ROOR ---
Patient Name: Mariah Richardson Procedure Date: 06/01/2020 12:21 PM Date of : 1985 Age: 34 Room: [facility] Gender: Female Note Status: Finalized Procedure: Upper GI endoscopy Indications: Abdominal pain in the left upper quadrant Providers: Cong Osborne MD Referring MD: TOAN Mcgrath Requesting Provider: Medicines: Monitored Anesthesia Care Complications: No immediate complications. Procedure: Pre-Anesthesia Assessment: - Prior to the procedure, a History and Physical was performed, and patient medications and allergies were reviewed. The patient is competent. The risks and benefits of the procedure and the sedation options and risks were discussed with the patient. All questions were answered and informed consent was obtained. Patient identification and proposed procedure were verified by the physician, the nurse and the field care advocate in the endoscopy suite. Mental Status Examination: alert and oriented. Airway Examination: normal oropharyngeal airway and neck mobility. Respiratory Examination: clear to auscultation. CV Examination: normal. Prophylactic Antibiotics: The patient does not require prophylactic antibiotics. Prior Anticoagulants: The patient has taken no previous anticoagulant or antiplatelet agents. ASA Grade Assessment: II - A patient with mild systemic disease. After reviewing the risks and benefits, the patient was deemed in satisfactory condition to undergo the procedure. The anesthesia plan was to use monitored anesthesia care (MAC). Immediately prior to administration of medications, the patient was re-assessed for adequacy to receive sedatives. The heart rate, respiratory rate, oxygen saturations, blood pressure, adequacy of pulmonary ventilation, and response to care were monitored throughout the procedure. The physical status of the patient was re-assessed after the procedure. The Endoscope was introduced through the mouth, and advanced to the third part of duodenum. The upper GI endoscopy was accomplished without difficulty. The patient tolerated the procedure well. Findings: The examined esophagus was normal. The Z-line was regular and was found 35 cm from the incisors. The entire examined stomach was normal. Biopsies were taken with a cold forceps for Helicobacter pylori testing. Estimated blood loss was minimal. The first portion of the duodenum and second portion of the duodenum were normal. Biopsies for histology were taken with a cold forceps for evaluation of celiac disease. Estimated blood loss was minimal. Impression: - Normal esophagus. - Z-line regular, 35 cm from the incisors. - Normal stomach. Biopsied. - Normal first portion of the duodenum and second portion of the duodenum. Biopsied. Recommendation: - Discharge patient to home (ambulatory). - Telephone my office for pathology results in 2 weeks. Procedure Code(s): --- Professional --- 43661, Esophagogastroduodenoscopy, flexible, transoral; with biopsy, single or multiple Diagnosis Code(s): --- Professional --- R10.12, Left upper quadrant pain CPT copyright 2019 [employer]. All rights reserved. The codes documented in this report are preliminary and upon edging supervisor review may be revised to meet current compliance requirements. Cong Osborne MD Cong Osborne MD 06/01/2020 1:05:57 PM Electronically signed by Cong Osborne MD Number of Addenda: 0 Note Initiated On: 06/01/2020 12:21 PM Estimated Blood Loss: Estimated blood loss was minimal.
--- NOTE | 2020-06-01 13:09 | ROOR ---
Patient Name: Mariah Richardson Procedure Date: 06/01/2020 12:22 PM Date of : 1985 Age: 34 Room: [facility] Gender: Female Note Status: Finalized Procedure: Colonoscopy Indications: Chronic diarrhea Providers: Cong Osborne MD Referring MD: TOAN Mcgrath Requesting Provider: Medicines: Monitored Anesthesia Care Complications: No immediate complications. Procedure: Pre-Anesthesia Assessment: - Prior to the procedure, a History and Physical was performed, and patient medications and allergies were reviewed. The patient is competent. The risks and benefits of the procedure and the sedation options and risks were discussed with the patient. All questions were answered and informed consent was obtained. Patient identification and proposed procedure were verified by the physician, the nurse and the clinical services professional in the endoscopy suite. Mental Status Examination: alert and oriented. Airway Examination: normal oropharyngeal airway and neck mobility. Respiratory Examination: clear to auscultation. CV Examination: normal. Prophylactic Antibiotics: The patient does not require prophylactic antibiotics. Prior Anticoagulants: The patient has taken no previous anticoagulant or antiplatelet agents. ASA Grade Assessment: II - A patient with mild systemic disease. After reviewing the risks and benefits, the patient was deemed in satisfactory condition to undergo the procedure. The anesthesia plan was to use monitored anesthesia care (MAC). Immediately prior to administration of medications, the patient was re-assessed for adequacy to receive sedatives. The heart rate, respiratory rate, oxygen saturations, blood pressure, adequacy of pulmonary ventilation, and response to care were monitored throughout the procedure. The physical status of the patient was re-assessed after the procedure. The Colonoscope was introduced through the anus and advanced to the terminal ileum, with identification of the appendiceal orifice and IC valve. The colonoscopy was performed without difficulty. The patient tolerated the procedure well. The quality of the bowel preparation was good. Findings: The perianal and digital rectal examinations were normal. The colon (entire examined portion) appeared normal. Biopsies for histology were taken with a cold forceps from the right colon, left colon, sigmoid colon and rectum for evaluation of microscopic colitis. The terminal ileum appeared normal. This was biopsied with a cold forceps for histology. Estimated blood loss was minimal. The retroflexed view of the distal rectum and anal verge was normal and showed no anal or rectal abnormalities. Impression: - The entire examined colon is normal. Biopsied. - The examined portion of the ileum was normal. Biopsied. - The distal rectum and anal verge are normal on retroflexion view. Recommendation: - Discharge patient to home (ambulatory). - Telephone my office for pathology results in 1 week. Procedure Code(s): --- Professional --- 34546, Colonoscopy, flexible; with biopsy, single or multiple Diagnosis Code(s): --- Professional --- K52.9, Noninfective gastroenteritis and colitis, unspecified CPT copyright 2019 [employer]. All rights reserved. The codes documented in this report are preliminary and upon airline transport pilot review may be revised to meet current compliance requirements. Cong Osborne MD Cong Osborne MD 06/01/2020 1:09:24 PM Electronically signed by Cong Osborne MD Number of Addenda: 0 Note Initiated On: 06/01/2020 12:22 PM Estimated Blood Loss: Estimated blood loss was minimal.
[2020-06-01 13:34] VITALS: BP 107/53
== END 2020-06-01 13:35 | disposition home or self-care (01) ==
LOC: M OPP 09:58
PROVIDERS: ATTEND Surgery
DX: K52.9 Noninfective gastroenteritis and colitis, unspecified (principal); R10.12 Left upper quadrant pain; D12.6 Benign neoplasm of colon, unspecified; D13.1 Benign neoplasm of stomach; D13.2 Benign neoplasm of duodenum; D13.39 Benign neoplasm of other parts of small intestine; F41.9 Anxiety disorder, unspecified; F17.290 Nicotine dependence, other tobacco product, uncomplicated; J30.81 Allergic rhinitis due to animal (cat) (dog) hair and dander; Z91.040 Latex allergy status; Z79.899 Other long term (current) drug therapy
CPT/HCPCS: 43239; 45380; 88305; J3010

== ENCOUNTER → 2020-07-28 | Outpatient (REF) | payer OTHER ==
[~2020-07-28] MED LIST changes: -NS 1,000 ML IV ONE
[2020-07-28 17:34] LABS: BASO # 0.1 10^3/uL (0.0-0.2); BASO % 0.8 % (0.0-1.0); EOS # 0.2 10^3/uL (0.0-0.5); EOS % 2.5 % (0.0-3.0); HEMATOCRIT 40.4 % (36.0-47.0); HEMOGLOBIN 13.6 g/dl (12.0-15.5); LYMPH # 1.5 10^3/uL (1.5-5.0); LYMPH % 19.9 % (24.0-44.0); MEAN CORPUSCULAR HEMOGLOBIN 32.3 pg (27.0-33.0); MEAN CORPUSCULAR HGB CONC 33.7 g/dl (32.0-36.5); MONO # 0.5 10^3/uL (0.0-0.8); MONO % 7.1 % (2.0-8.0); NEUTROPHILS # 5.1 10^3/uL (1.5-8.5); NEUTROPHILS % 69.3 % (36.0-66.0); PLATELET COUNT, AUTOMATED 304 10^3/uL (150-450); RED BLOOD COUNT 4.21 10^6/uL (4.00-5.40); WHITE BLOOD COUNT 7.3 10^3/uL (4.0-10.0)
[2020-07-30 17:16] LABS: Lyme Disease IgG/IgM Antibodie <0.91 ISR (0.00-0.90); Lyme Disease IgM Ab Quantitati <0.80 index (0.00-0.79)
== END ==
LOC: M LAB REF 16:19
PROVIDERS: ATTEND Physician Assistant
DX: R53.83 Other fatigue (principal)

== ENCOUNTER → 2020-08-31 | Outpatient (CLI) | payer OTHER ==
--- NOTE | 2020-09-02 01:52 | REP ---
INDICATION: N83.201 RT OVARIAN CYST COMPARISON: None. TECHNIQUE: Transabdominal pelvic ultrasound followed by transvaginal examination for better evaluation of the endometrium and adnexa with color Doppler evaluation of the ovaries. FINDINGS: Bladder is unremarkable and measures 9.3 x 9.0 x 7.7 cm. Normal retroverted uterus measures 7.6 x 4.0 x 5.3 cm. The endometrial complex measures 5.0 mm thickness. IUD identified in central satisfactory position. Small subcentimeter nabothian cysts in the cervix noted. Bilateral ovaries are normal in appearance and vascularity without evidence for torsion. Right ovary measures 4.0 x 1.4 x 2.0 cm; R I = 0.49. Left ovary measures 3.1 x 1.4 x 2.0 cm; R I = 0.66. Small amount of pelvic free fluid is nonspecific and likely physiologic. IMPRESSION: Essentially normal pelvic ultrasound. <Electronically signed by Ramses Villanueva > 09/02/20 0148
== END ==
LOC: M WHC 13:35
PROVIDERS: ATTEND Nurse Practitioner Women's Health
DX: N83.201 Unspecified ovarian cyst, right side (principal)

== ENCOUNTER → 2020-10-10 | Outpatient (REF) | payer OTHER ==
[~2020-10-10] MED LIST changes: -DOXY100C37 PO; +DOXY1CAP62 PO
== END ==
LOC: M LAB REF 18:00
PROVIDERS: ATTEND Internal Medicine Gastroenterology
DX: R19.7 Diarrhea, unspecified (principal); R10.9 Unspecified abdominal pain; R63.4 Abnormal weight loss

== ENCOUNTER 2020-10-12 22:33 | Emergency (ER) | payer OTHER ==
[~2020-10-12] VITALS: Ht 157.5 cm; Wt 49.4 kg
[2020-10-13 00:42] LABS: BASO # 0.1 10^3/uL (0.0-0.2); BASO % 0.5 % (0.0-1.0); EOS # 0.2 10^3/uL (0.0-0.5); EOS % 1.4 % (0.0-3.0); HEMATOCRIT 40.3 % (36.0-47.0); HEMOGLOBIN 13.4 g/dl (12.0-15.5); LYMPH # 1.8 10^3/uL (1.5-5.0); LYMPH % 13.8 % (24.0-44.0); MEAN CORPUSCULAR HEMOGLOBIN 32.1 pg (27.0-33.0); MEAN CORPUSCULAR HGB CONC 33.3 g/dl (32.0-36.5); MEAN CORPUSCULAR VOLUME 96.4 fl (80.0-96.0); MONO # 0.8 10^3/uL (0.0-0.8); MONO % 6.5 % (2.0-8.0); NEUTROPHILS # 9.9 10^3/uL (1.5-8.5); NEUTROPHILS % 77.6 % (36.0-66.0); PLATELET COUNT, AUTOMATED 308 10^3/uL (150-450); RED BLOOD COUNT 4.18 10^6/uL (4.00-5.40); WHITE BLOOD COUNT 12.8 10^3/uL (4.0-10.0)
[2020-10-13] MEDS ORDERED: NS 1,000 ML IV ONE (01:15)
[2020-10-13] MEDS ORDERED: ONDANSETRON 4MG/2ML VIAL IV ONE (01:15)
[2020-10-13 01:25] LABS: ALT/SGPT 17 U/L (12-78); BILIRUBIN,DIRECT 0.1 MG/DL (0.0-0.2); BILIRUBIN,TOTAL 0.4 MG/DL (0.2-1.0); BLOOD UREA NITROGEN 9 MG/DL (7-18); CALCIUM LEVEL 8.4 MG/DL (8.5-10.1); CARBON DIOXIDE LEVEL 30 MEQ/L (21-32); CHLORIDE LEVEL 109 MEQ/L (98-107); CREATININE FOR GFR 0.61 MG/DL (0.55-1.30); FREE THYROXINE INDEX 2.3 % (1.3-4.8); GLOMERULAR FILTRATION RATE > 60.0 (>60); GLUCOSE, FASTING 84 MG/DL (70-100); LIPASE 35 U/L (73-393); POTASSIUM SERUM 3.7 MEQ/L (3.5-5.1); SODIUM LEVEL 141 MEQ/L (136-145); T UPTAKE 31 % (30-39); THYROXINE (T4) 7.5 UG/DL (4.5-12.0); TOTAL PROTEIN 7.3 GM/DL (6.4-8.2)
[2020-10-13 01:34] LABS: HCG, SERUM QUALITATIVE NEGATIVE (NEGATIVE)
[2020-10-13] MEDS ORDERED: ISOVUE-370 76% 100ML VIAL As Ordered ONE (01:51)
[2020-10-13 02:16] VITALS: BP 104/56
== END 2020-10-13 02:16 | disposition home or self-care (01) ==
LOC: M ED 22:33
DX: R10.32 Left lower quadrant pain (principal); R11.2 Nausea with vomiting, unspecified; R94.6 Abnormal results of thyroid function studies; E07.9 Disorder of thyroid, unspecified; Z91.040 Latex allergy status; Z98.890 Other specified postprocedural states
CPT/HCPCS: 80048; 80076; 81001; 83690; 84436; 84443; 84479; 84703; 85025; 96374; 99284; J2405; Q9967

== ENCOUNTER → 2020-10-27 | Outpatient (CLI) | payer OTHER ==
[~2020-10-27] MED LIST changes: +DOXY-443 PO; -DOXY1CAP62 PO
== END ==
LOC: M RAD 07:16
PROVIDERS: ATTEND Physician Assistant
DX: R10.9 Unspecified abdominal pain (principal)

== ENCOUNTER → 2021-01-31 | Outpatient (CLI) | payer OTHER ==
[~2021-01-31] MED LIST changes: -DOXY-443 PO; +DOXY1CAP62 PO
== END ==
LOC: M LAB 11:05
PROVIDERS: ATTEND Internal Medicine Gastroenterology
DX: R19.7 Diarrhea, unspecified (principal)

== ENCOUNTER → 2021-01-31 | Outpatient (CLI) | payer OTHER ==
[2021-01-31 13:03] LABS: FREE T4 1.09 NG/DL (0.76-1.46); THYROID STIMULATING HORMONE 0.91 uIU/ML (0.358-3.740)
== END ==
LOC: M LAB 11:01
PROVIDERS: ATTEND Internal Medicine Endocrinology, Diabetes & Metabolism
DX: E06.3 Autoimmune thyroiditis (principal)

== ENCOUNTER → 2021-05-01 | Outpatient (CLI) | payer OTHER ==
[~2021-05-01] MED LIST changes: +DOXY-443 PO; -DOXY1CAP62 PO
== END ==
LOC: M LAB 11:03
PROVIDERS: ATTEND Physician Assistant
DX: M54.50 Low back pain, unspecified (principal)

== ENCOUNTER → 2021-05-01 | Outpatient (CLI) | payer OTHER | LOC: M LAB 11:08 | PROVIDERS: ATTEND Physician Assistant | DX: R76.8 Other specified abnormal immunological findings in serum (principal) ==

== ENCOUNTER → 2021-06-26 | Outpatient (CLI) | payer OTHER ==
[2021-06-26 12:19] LABS: FREE T4 1.15 NG/DL (0.76-1.46); THYROID STIMULATING HORMONE 2.55 uIU/ML (0.358-3.740)
== END ==
LOC: M LAB 10:55
PROVIDERS: ATTEND Nurse Practitioner Family
DX: E06.3 Autoimmune thyroiditis (principal)

== ENCOUNTER 2021-08-17 18:44 | Emergency (ER) | payer OTHER ==
[~2021-08-17] VITALS: Ht 157.5 cm; Wt 49.6 kg
[2021-08-17 18:45] VITALS: BP 121/71
[2021-08-17] MEDS ORDERED: LEVO50TA5 (18:52)
== END 2021-08-17 18:55 | disposition left against medical advice (07) ==
LOC: M ED 18:44
DX: Z53.21 Procedure and treatment not carried out due to patient leaving prior to being seen by health care provider (principal)

== ENCOUNTER → 2021-08-21 | Outpatient (CLI) | payer OTHER ==
[~2021-08-21] MED LIST changes: +LEVO50TA5
== END ==
LOC: M RAD 12:42
PROVIDERS: ATTEND Nurse Practitioner Family
DX: K08.9 Disorder of teeth and supporting structures, unspecified (principal); R68.84 Jaw pain

== ENCOUNTER → 2022-06-25 | Outpatient (REF) | payer OTHER | LOC: M LAB REF 16:12 | PROVIDERS: ATTEND Nurse Practitioner Family | DX: E06.3 Autoimmune thyroiditis (principal) ==

== ENCOUNTER → 2022-09-06 | Outpatient (REF) | payer OTHER | LOC: M LAB REF 16:57 | PROVIDERS: ATTEND Nurse Practitioner Family | DX: E06.3 Autoimmune thyroiditis (principal) ==

== ENCOUNTER → 2023-04-23 | Outpatient (REF) | payer OTHER ==
[~2023-04-23] MED LIST changes: +IBUP-1022 PO
[2023-04-23 14:18] LABS: THYROID STIMULATING HORMONE 6.542 uIU/ML (0.55-4.78); TOTAL 25(OH) VITAMIN D 12.5 NG/ML (20.0-100.0)
[2023-04-23 14:19] LABS: ALBUMIN 3.9 G/DL (3.2-5.2); ALKALINE PHOSPHATASE 56 U/L (46-116); ALT/SGPT 23 U/L (7.0-40); AST/SGOT < 8 U/L (<34); BILIRUBIN,TOTAL 0.5 MG/DL (0.3-1.2); BLOOD UREA NITROGEN 12 MG/DL (9-23); CALCIUM LEVEL 9.1 MG/DL (8.5-10.1); CARBON DIOXIDE LEVEL 25 MMOL/L (20-31); CHLORIDE LEVEL 109 MMOL/L (98-107); CREATININE FOR GFR 0.52 MG/DL (0.55-1.30); GLOMERULAR FILTRATION RATE > 60.0 (>60); GLUCOSE, FASTING 85 MG/DL (60-100); POTASSIUM SERUM 4.1 MMOL/L (3.5-5.1); SODIUM LEVEL 140 MMOL/L (136-145); TOTAL PROTEIN 7.1 G/DL (5.7-8.2)
== END ==
LOC: M LAB REF 12:55
PROVIDERS: ATTEND Family Medicine Addiction Medicine
DX: E03.9 Hypothyroidism, unspecified (principal); E55.9 Vitamin D deficiency, unspecified

== ENCOUNTER → 2023-04-23 | Outpatient (CLI) | payer OTHER | LOC: M WUC 10:02 | PROVIDERS: ATTEND Physician Assistant | DX: S80.211A Abrasion, right knee, initial encounter (principal); X58.XXXA Exposure to other specified factors, initial encounter; Y92.9 Unspecified place or not applicable ==

== ENCOUNTER 2023-04-24 00:33 | Emergency (ER) | payer OTHER ==
[~2023-04-24] VITALS: Ht 157.5 cm; Wt 54.2 kg
[~2023-04-24 00:33] MED LIST changes: -IBUP-1022 PO
[2023-04-24] MEDS ORDERED: ACETAMINOPHEN TAB 650MG DOSE (2X325MG) PO ONE (07:05)
[2023-04-24] MEDS ORDERED: IBUP-1022 PO (08:46)
[2023-04-24 08:56] VITALS: BP 129/78; TEMP 98.4; O2SAT 97
== END 2023-04-24 09:12 | disposition home or self-care (01) ==
LOC: M ED 00:33
DX: M23.91 Unspecified internal derangement of right knee (principal); K21.9 Gastro-esophageal reflux disease without esophagitis; Z91.040 Latex allergy status; Z79.890 Hormone replacement therapy

== ENCOUNTER → 2023-06-17 | Outpatient (REF) | payer OTHER ==
[~2023-06-17] MED LIST changes: +IBUP-1022 PO
== END ==
LOC: M LAB REF 12:43
PROVIDERS: ATTEND Nurse Practitioner Family
DX: E06.3 Autoimmune thyroiditis (principal)

== ENCOUNTER → 2023-07-11 | Outpatient (CLI) | payer OTHER | LOC: M RAD 07:10 | PROVIDERS: ATTEND Physician Assistant | DX: M23.8X1 Other internal derangements of right knee (principal); M67.51 Plica syndrome, right knee ==

== ENCOUNTER → 2023-08-26 | Outpatient (REF) | payer OTHER ==
[~2023-08-26] MED LIST changes: +DOXY-323 PO; -DOXY-443 PO
[2023-08-26 18:30] LABS: BASO # 0.1 10^3/uL (0.0-0.2); BASO % 0.9 % (0.0-1.0); EOS # 0.2 10^3/uL (0.0-0.5); EOS % 2.6 % (0.0-3.0); HEMATOCRIT 40.5 % (36.0-47.0); HEMOGLOBIN 13.6 g/dl (12.0-15.5); LYMPH % 15.4 % (24.0-44.0); MEAN CORPUSCULAR HEMOGLOBIN 31.7 pg (27.0-33.0); MEAN CORPUSCULAR HGB CONC 33.6 g/dl (32.0-36.5); MEAN CORPUSCULAR VOLUME 94.4 fl (80.0-96.0); MONO # 0.5 10^3/uL (0.0-0.8); MONO % 7.8 % (2.0-8.0); NEUTROPHILS # 4.8 10^3/uL (1.5-8.5); PLATELET COUNT, AUTOMATED 311 10^3/uL (150-450); RED BLOOD COUNT 4.29 10^6/uL (4.00-5.40); WHITE BLOOD COUNT 6.6 10^3/uL (4.0-10.0)
[2023-08-26 18:36] LABS: ERYTHROCYTE SEDIMENTATION RATE 6 mm/hr (0-20)
[2023-08-26 18:46] LABS: C REACTIVE PROTEIN QUANTITATIV < 0.40 MG/DL (<1.0)
[2023-08-26 18:48] LABS: ALBUMIN 4.2 G/DL (3.2-5.2); ALKALINE PHOSPHATASE 73 U/L (46-116); ALT/SGPT 10 U/L (7.0-40); AST/SGOT < 8 U/L (<34); BILIRUBIN,TOTAL 0.4 MG/DL (0.3-1.2); BLOOD UREA NITROGEN 19 MG/DL (9-23); CALCIUM LEVEL 9.5 MG/DL (8.5-10.1); CARBON DIOXIDE LEVEL 29 MMOL/L (20-31); CHLORIDE LEVEL 106 MMOL/L (98-107); GLOMERULAR FILTRATION RATE > 60.0 (>60); GLUCOSE, FASTING 77 MG/DL (60-100); POTASSIUM SERUM 4.6 MMOL/L (3.5-5.1); SODIUM LEVEL 139 MMOL/L (136-145); TOTAL PROTEIN 7.4 G/DL (5.7-8.2)
[2023-08-26 18:50] LABS: THYROID STIMULATING HORMONE 5.601 uIU/ML (0.55-4.78)
== END ==
LOC: M LAB REF 17:15
PROVIDERS: ATTEND Nurse Practitioner Family
DX: E06.3 Autoimmune thyroiditis (principal); R69 Illness, unspecified

== ENCOUNTER → 2023-11-26 | Outpatient (REF) | payer OTHER ==
[2023-11-26 20:17] LABS: THYROID STIMULATING HORMONE 1.655 uIU/ML (0.55-4.78)
[2023-11-26 20:18] LABS: FREE T4 1.3 NG/DL (0.89-1.76)
== END ==
LOC: M LAB REF 17:40
PROVIDERS: ATTEND Nurse Practitioner Family
DX: E06.3 Autoimmune thyroiditis (principal)

== ENCOUNTER → 2024-07-13 | Outpatient (REF) | payer OTHER ==
[~2024-07-13] MED LIST changes: -DOXY-323 PO; +DOXY-441 PO
[2024-07-13 13:28] LABS: BLOOD UREA NITROGEN 15 MG/DL (9-23); CALCIUM LEVEL 9.4 MG/DL (8.5-10.1); CARBON DIOXIDE LEVEL 27 MMOL/L (20-31); CHLORIDE LEVEL 109 MMOL/L (98-107); CREATININE FOR GFR 0.57 MG/DL (0.55-1.30); GLOMERULAR FILTRATION RATE > 60.0 (>60); GLUCOSE, FASTING 79 MG/DL (60-100); POTASSIUM SERUM 4.1 MMOL/L (3.5-5.1); SODIUM LEVEL 141 MMOL/L (136-145); TOTAL 25(OH) VITAMIN D 22.3 NG/ML (20.0-100.0)
[2024-07-13 13:30] LABS: THYROID STIMULATING HORMONE 14.467 uIU/ML (0.55-4.78)
== END ==
LOC: M LAB REF 12:11
PROVIDERS: ATTEND Nurse Practitioner Family
DX: F41.1 Generalized anxiety disorder (principal); E06.3 Autoimmune thyroiditis; E55.9 Vitamin D deficiency, unspecified

== ENCOUNTER → 2024-10-28 | Outpatient (CLI) | payer OTHER ==
[2024-10-28 10:06] LABS: BASO # 0.1 10^3/uL (0.0-0.2); BASO % 1.1 % (0.0-1.0); EOS # 0.5 10^3/uL (0.0-0.5); EOS % 8.6 % (0.0-3.0); LYMPH # 0.9 10^3/uL (1.5-5.0); LYMPH % 16.2 % (24.0-44.0); MONO # 0.5 10^3/uL (0.0-0.8); MONO % 9.5 % (2.0-8.0); NEUTROPHILS # 3.5 10^3/uL (1.5-8.5); NEUTROPHILS % 64.4 % (36.0-66.0); PLATELET COUNT, AUTOMATED 324 10^3/uL (150-450)
[2024-10-28 10:19] LABS: ESTIMATED AVERAGE GLUCOSE 91.0 MG/DL (60-110)
[2024-10-28 10:26] LABS: IRON (FE) 110 UG/DL (50-170); PERCENT SATURATION 33.5 % (13.2-45.0)
[2024-10-28 10:27] LABS: ALT/SGPT 12 U/L (7.0-40); AST/SGOT < 8 U/L (<34); CALCIUM LEVEL 9.7 MG/DL (8.5-10.1); CARBON DIOXIDE LEVEL 26 MMOL/L (20-31); CHLORIDE LEVEL 109 MMOL/L (98-107); CHOLESTEROL LEVEL 156 MG/DL (<200); CHOLESTEROL RISK RATIO 3.07 (<5); CREATININE FOR GFR 0.53 MG/DL (0.55-1.30); GLOMERULAR FILTRATION RATE > 90.0 (>60); LDL CHOLESTEROL 92.9 MG/DL (<100); NON-HDL-C 105.3 MG/DL; POTASSIUM SERUM 4.6 MMOL/L (3.5-5.1); SODIUM LEVEL 144 MMOL/L (136-145); TRIGLYCERIDES LEVEL 62 MG/DL (<150)
[2024-10-28 10:30] LABS: FREE T4 1.36 NG/DL (0.89-1.76)
== END ==
LOC: M EKG 08:13
PROVIDERS: ATTEND Nurse Practitioner Family
DX: R42 Dizziness and giddiness (principal); E06.3 Autoimmune thyroiditis

== ENCOUNTER → 2024-12-10 | Outpatient (REF) | payer OTHER ==
[2024-12-14 12:58] LABS: HPV APTIMA Not Detected (Not Detected)
== END ==
LOC: M LAB REF 12:20
PROVIDERS: ATTEND Nurse Practitioner Family
DX: Z12.4 Encounter for screening for malignant neoplasm of cervix (principal)
CPT/HCPCS: 87624; G0123

== ENCOUNTER → 2025-01-04 | Outpatient (REF) | payer OTHER ==
[~2025-01-04] MED LIST changes: -IBUP-1022 PO; +IBUP600T42 PO
== END ==
LOC: M LAB REF 16:24
PROVIDERS: ATTEND Nurse Practitioner Family
DX: R06.3 Periodic breathing (principal)